=== PATIENT | female | born 2000 | race Caucasian/White ===

== ENCOUNTER → 2022-08-14 | Outpatient (CLI) | payer BC ==
[~2022-08-14] MED LIST: ALDACTONE50 M1 PO; AMLODIPINE BESYL5 MG PO
[2022-08-14 08:10] LABS: POTASSIUM 3.6 mmol/L (3.5-5.1)
[2022-08-14 08:11] LABS: CALCIUM 10.6 mg/dL (8.3-10.5)
[2022-08-17 15:54] LABS: ALDOSTERONE, SERUM 32 ng/dL (<=21)
[2022-08-17 16:27] LABS: RENIN,PLASMA 26 ng/mL/h (())
== END ==
LOC: LAB 07:35
PROVIDERS: Family Medicine
DX: I10 Essential (primary) hypertension (principal); E87.6 Hypokalemia; E03.9 Hypothyroidism, unspecified

== ENCOUNTER → 2022-08-30 | Outpatient (CLI) | payer BC | LOC: RAD 09:22 | DX: K82.8 Other specified diseases of gallbladder (principal); K63.89 Other specified diseases of intestine; I15.9 Secondary hypertension, unspecified; E26.09 Other primary hyperaldosteronism; E87.6 Hypokalemia | CPT/HCPCS: Q9967 ==

== ENCOUNTER → 2022-09-09 | Outpatient (CLI) | payer BC | LOC: RAD 09:31 | DX: E27.8 Other specified disorders of adrenal gland (principal) | CPT/HCPCS: Q9967 ==